=== PATIENT | male | born 1960 | race Caucasian/White ===

== ENCOUNTER → 2021-07-17 | Outpatient (CLI) | payer OTHER ==
--- NOTE | 2021-07-17 15:53 | XR ---
EXAMINATION TYPE: XR chest 2V DATE OF EXAM: 07/17/2021 COMPARISON: NONE TECHNIQUE: PA and lateral views submitted. HISTORY: Shortness of breath FINDINGS: The lungs are clear and there is no pneumothorax, pleural effusion, or focal pneumonia. Chronic rib cage deformity on the right. Hyperinflation suggests COPD. No overt failure. Degenerative change of the spine. IMPRESSION: 1. No acute process. Correlate for COPD.
== END | disposition home or self-care (01) ==
LOC: RADXRYALE 15:37
PROVIDERS: ATTEND Internal Medicine
DX: R06.02 Shortness of breath (principal)
CPT/HCPCS: 71046

== ENCOUNTER → 2022-03-18 | Outpatient (CLI) | payer OTHER ==
--- NOTE | 2022-03-18 21:25 | CT ---
EXAMINATION TYPE: CT chest w con CT DLP: 455 mGycm, Automated exposure control for dose reduction was used. DATE OF EXAM: 03/18/2022 5:39 PM COMPARISON: None CLINICAL INDICATION:Male, 62 years old with history of R91.1; lung nodule TECHNIQUE: Multiple axial images were obtained through the chest following the administration of 100 cc of Isovue 300. FINDINGS: LUNGS/ PLEURA: There is centrilobular and paraseptal emphysema changes seen throughout the lungs. There is a 6 mm right lower lobe pulmonary nodule (series 4 image 33). No evidence of focal consolida tion, or pneumothorax. AIRWAY: Patent and unremarkable.. HEART: Size within normal limits. MEDIASTINUM: No gross evidence of adenopathy. VASCULATURE: No aortic aneurysm. MUSCULOSKELETAL: No acute osseous abnormalities. Mild extra scoliosis the spine. Multilevel disc dege neration changes throughout the spine. Multiple old rib fractures are seen on the right. SOFT TISSUES/LYMPH NODES: Unremarkable. LOWER NECK: No significant findings. UPPER ABDOMEN: Low-attenuation to the liver parenchyma. IMPRESSION: 1. Right lower lobe 6 mm pulmonary nodule. Follow-up in 6-12 months is recommended with low-dose CT c hest. 2. Mild emphysema changes. 3. Old right sided rib fractures. 4. Hepatic steatosis.
== END | disposition home or self-care (01) ==
LOC: RADCTMAIN 16:19
PROVIDERS: ATTEND Internal Medicine Critical Care Medicine
DX: R91.1 Solitary pulmonary nodule (principal); J43.2 Centrilobular emphysema; K76.0 Fatty (change of) liver, not elsewhere classified
CPT/HCPCS: 71260; Q9967

== ENCOUNTER → 2024-09-14 | Outpatient (CLI) | payer OTHER ==
--- NOTE | 2024-09-14 14:31 | CTL ---
EXAMINATION TYPE: CT Low Dose Lung DATE OF EXAM ORDERED: 09/14/2024 COMPARISON: 05/27/2023 CLINICAL INDICATION: Male, 64 years old with history of Z12.2 Screening lung cancer;; [facility], Former smo ker. Quit x6yrs. 1PPD x45yrs., Lung cancer screening, History of Smoking/tobacco use. TECHNIQUE: Low dose computed tomography scan was performed through the chest at 1 mm thick sections a nd reconstructed images in multiple planes at 1 mm and [address] DLP: 80.[address] CTDI: 2.0 mGy Automated exposure control for dose reduction was used. CT DIAGNOSTIC QUALITY: Satisfactory FINDINGS: There are mild emphysematous changes. There are a few scattered sub-4 mm nodules which are stable. No new or suspicious lung mass or nodule is seen. There is no airspace consolidation or abnormal interstitial density. There is no pleural effusion or pneumothorax. The great vessels of the chest are normal and there is no mediastinal, hilar or axillary adenopathy. Limited scanning through the upper abdomen is no gross abnormality. No focal osseous lesions are seen. IMPRESSION: 1. Lung rads category 2, benign findings. Continue routine screening yearly intervals. 2. Mild emphysematous changes. 3. No acute pulmonary disease. [facility], , 09/14/2024 2:28 PM
== END | disposition home or self-care (01) ==
LOC: RADCTMAIN 13:12
PROVIDERS: ATTEND Internal Medicine
DX: Z12.2 Encounter for screening for malignant neoplasm of respiratory organs (principal); J43.9 Emphysema, unspecified; Z87.891 Personal history of nicotine dependence
CPT/HCPCS: 71271

== ENCOUNTER 2024-11-06 11:21 | Day surgery (SDC) | payer OTHER ==
[2024-11-05 11:29] VITALS: BMI 26.6
[~2024-11-06 11:21] MED LIST: LIDOCAINE 1% (10MG/ML) FOR IV START INTRADERMA PRN
[2024-11-06] MEDS: IV FLUID CONTINUATION 1,000 ML IV ONE ×2 (12:39→13:10)
[2024-11-06 12:44] VITALS: TEMP 97.5
[2024-11-06] MEDS: LACTATED RINGERS 1,000 ML IV SCH (12:48)
[2024-11-06] MEDS ORDERED: PROPOFOL 10 MG/ML 20 ML VIAL IV ONE (13:11)
--- NOTE | 2024-11-06 13:33 | P.PCN ---
Date of Procedure: 11/06/24 Procedure(s) Performed: BRIEF HISTORY: Patient is a 64-year-old pleasant white male scheduled for an elective colonoscopy as a part of screening for colon cancer. PROCEDURE PERFORMED: Colonoscopy with snare polypectomy. PREOPERATIVE DIAGNOSIS: Screening for colon cancer. IV sedation per Anesthesia. PROCEDURE: After informed consent was obtained, the patient, was brought into the endoscopy unit. IV sedation was administered by Anesthesia under continuous monitoring. Digital rectal examination was normal. Initially the Olympus CF-160 flexible video colonoscope was then inserted in the rectum, gradually advanced into the cecum without any difficulty. Careful examination was performed as the scope was gradually being withdrawn. Ileocecal valve and the appendiceal orifice were visualized and appeared normal. Prep was excellent. Mucosa of the cecum, had a 6 mm polyp that was removed by cold snare polypectomy. In the ascending colon there were 2 polyps measuring 5 and 6 mm in size removed by snare polypectomy. In the transverse colon there was a 8 mm polyp removed by snare polypectomy. In the sigmoid colon there were 2 polyps measuring 5 mm in size removed by snare polypectomy and in the rectum there was a 1 polyp that measured 5 mm in size removed by snare polypectomy. . Retroflexion was performed in the rectum and no lesions were seen. The patient tolerated the procedure well. IMPRESSION: 5 mm cecal polyp status post cold snare polypectomy 5 mm and 6 mm ascending colon polyp status post polypectomy 8 mm transverse colon polyp status post polypectomy 5 mm x 2 sigmoid colon polyp status post polypectomy 5 mm rectal polyp status post polypectomy RECOMMENDATIONS: Findings of this examination were discussed with the patient as well as his family. He was advised to follow-up with the biopsy results. If the biopsy reveals adenoma he can have repeat colonoscopy in 3 years..
[2024-11-06 13:39] VITALS: RESP 16
[2024-11-06 13:51] VITALS: BP 135/88; PULSE 60
== END 2024-11-06 14:05 | disposition home or self-care (01) ==
LOC: ORWHC2ENDO 11:21
PROVIDERS: ATTEND Internal Medicine Gastroenterology
DX: Z12.11 Encounter for screening for malignant neoplasm of colon (principal); D12.0 Benign neoplasm of cecum; D12.2 Benign neoplasm of ascending colon; D12.3 Benign neoplasm of transverse colon; K62.1 Rectal polyp; I10 Essential (primary) hypertension; E78.5 Hyperlipidemia, unspecified; J44.9 Chronic obstructive pulmonary disease, unspecified; F41.9 Anxiety disorder, unspecified; Z79.51 Long term (current) use of inhaled steroids; Z79.899 Other long term (current) drug therapy; Z87.891 Personal history of nicotine dependence
CPT/HCPCS: 88305; 45385; J2704